=== PATIENT | female | born 2000 | race Caucasian/White ===

== ENCOUNTER 2025-02-04 08:25 | Inpatient (IN) | payer OTHER ==
[~2025-02-04] VITALS: Ht 172.7 cm; Wt 122.5 kg
[2025-02-04 14:04] VITALS: BP 122/88
[2025-02-04 14:25] VITALS: BP 122/88
[2025-02-04] MEDS ORDERED: ACET500 PO (14:50)
[2025-02-04] MEDS ORDERED: Loratadine10 MG PO (14:50)
[2025-02-04] MEDS ORDERED: METO10 PO (14:51)
[2025-02-04] MEDS ORDERED: VENL150ER PO (14:52)
[2025-02-04] MEDS ORDERED: DICLOFENAC SODI50 GM TOP (14:54)
[2025-02-04] MEDS ORDERED: ALBU90OI INH (14:55)
[2025-02-04] MEDS ORDERED: BUDESONIDE-FO10.2 G2 INH (14:58)
[2025-02-04] MEDS ORDERED: ATOR10 PO (15:00)
[2025-02-04] MEDS ORDERED: TRULICITY4.5 MG/0.5 SC (15:04)
[2025-02-04] MEDS ORDERED: LISI5 PO (15:04)
[2025-02-04] MEDS ORDERED: HYDHCL25 (15:06)
[2025-02-04] MEDS ORDERED: TOPI100 PO (15:06)
[2025-02-04] MEDS ORDERED: TRAZ150T57 PO (15:07)
[2025-02-04] MEDS ORDERED: PRAZ1 PO (15:08)
[2025-02-04] MEDS ORDERED: DULERA 100 MCG/13 GM INH (15:20)
[2025-02-04] MEDS ORDERED: ZYRTEC10 M2 PO (15:24)
[2025-02-04] MEDS ORDERED: OLANZapine ODT 10 MG Tab MM PRN (15:45)
[2025-02-04] MEDS ORDERED: Ondansetron 4 MG SoluTab MM PRN (15:45)
[2025-02-04] MEDS ORDERED: Acetaminophen 325 MG TABLET PO PRN (15:50)
[2025-02-04] MEDS ORDERED: LORazepam 2 MG Tab PO PRN (15:50)
[2025-02-04] MEDS ORDERED: TraZODone HCl 50 MG Tab PO PRN (15:50)
[2025-02-04] MEDS ORDERED: LORazepam 2 MG/ML 1ML Injection IM PRN (15:50)
[2025-02-04] MEDS ORDERED: Ibuprofen 600 MG Tab PO PRN (15:50)
[2025-02-04] MEDS ORDERED: Aluminum Hydroxide 320MG/5ML 473 ML PO PRN (15:50)
[2025-02-04] MEDS ORDERED: Calcium Carbonate 500 MG Tab Chew PO PRN (15:50)
[2025-02-04] MEDS ORDERED: HydrOXYzine Pamoate 50 MG Cap PO PRN (15:55)
[2025-02-04] MEDS ORDERED: Polyethylene Glycol 3350 17 gm PO PRN (15:55)
[2025-02-04] MEDS ORDERED: Melatonin 3 MG Tab PO PRN (15:55)
[2025-02-04] MEDS ORDERED: Haloperidol Lactate Inj. 5 MG/ML Injection IM PRN (15:55)
[2025-02-04] MEDS ORDERED: DiphenhydrAMINE HCl 50 MG/ML 1ML Vial IM PRN (15:55)
[2025-02-04] MEDS ORDERED: Haloperidol 5 MG Tab PO PRN (15:55)
[2025-02-04] MEDS ORDERED: DiphenhydrAMINE HCl 50 MG Cap PO PRN (15:55)
[2025-02-04] MEDS ORDERED: Loratadine 10 MG Tab PO PRN (16:20)
[2025-02-04] MEDS ORDERED: Albuterol HFA200 ACT/6.7 GM INH INH PRN (16:20)
[2025-02-04] MEDS ORDERED: Diclofenac Sodium 100 GM TUBE TOP PRN (16:20)
[2025-02-04] MEDS ORDERED: Mometasone/Formoterol MDI 100/5 mcg 13 GM INH SCH (16:25)
[2025-02-04] MEDS ORDERED: Metoclopramide HCl 10 MG Tab PO SCH (17:30)
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
[2025-02-04] MEDS ORDERED: Prazosin HCl 1 MG Cap PO SCH (18:00)
[2025-02-04 20:00] VITALS: BP 134/88
[2025-02-04] MEDS ORDERED: Topiramate 100 MG Tab PO SCH (21:00)
--- NOTE | 2025-02-05 04:06 | NUR ---
SHIFT SUMMARY PT IN BED AT START OF SHIFT, AWAKES TO VERBAL STIMULI. PT WAS TEARFUL AND STATED HE IS UPSET ABOUT HIS CURRENT SITUATION, BUT DENIES ANY CURRENT SI OR THOUGHTS OF SELF HARM. PT PRESENTED TO GROUP AND WATCHED TV. HE HAD HIS EVENING SNACK, WAS COMPLIANT WITH MEDICATIONS, RECEIVED PRN TRAZODONE AND MELATONIN. HE WENT TO BED SHORTLY AFTER SNACK AND HAS APPEARED TO SLEEP THROUGHOUT THE NIGHT WITH RESPIRATIONS CONFIRMED. Q15 MINUTE CHECKS TO CONTINUE.
[2025-02-05 07:12] VITALS: BP 132/87
[2025-02-05 07:14] LABS: CHOL/HDL RATIO 5.4; Cholesterol 156 mg/dL (50-200); HDL Cholesterol 29 mg/dL (>39); LDL/HDL RATIO Unable to Calculate; Low Density Lipoprotein Chol Unable to Calculate mg/dL (0-110); Triglycerides 606 mg/dL (30-140); Very Low Density Lipoprot Chol Unable to Calculate mg/dL (6-28)
[2025-02-05] MEDS ORDERED: Multivitamins 1 Tab PO SCH (09:00)
[2025-02-05] MEDS ORDERED: Venlafaxine HCl 75 MG CapCR PO SCH (09:00)
[2025-02-05] MEDS ORDERED: Atorvastatin 10 MG Tab PO SCH (09:00)
[2025-02-05] MEDS ORDERED: Lisinopril 5 MG Tab PO SCH (09:00)
--- NOTE | 2025-02-05 17:17 | NUR ---
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 HE IS A/O X4 AND ADHERES TO PLAN OF CARE. HE REPORTS CHRONIC SI BUT DOES NOT HAVE A PLAN OR INTENT. HE SAYS THAT HE JUST THINKS ABOUT SUICIDE OFTEN AND THIS IS THE NORM FOR HIM. HE DENIES HI OR ANY HALLUCINATIONS. HE APPEARS TEARFUL AT TIMES AND AFFECT IS SOMEWHAT ANXIOUS. HE ATTENDED ALL GROUPS AND MEALS THIS SHIFT. MONITORED Q15 FOR SAFETY AND WELLNESS.
[2025-02-05 20:00] VITALS: BP 123/77
--- NOTE | 2025-02-06 04:05 | NUR ---
SHIFT SUMMARY PT SLEEPING IN BED AT START OF SHIFT, AWAKES EASILY. A&OX4. SHE STATES HER MOOD IS "BETTER". PT DENIES ANY CURRENT SI OR THOUGHTS OF SELF HARM, BUT DOES STATE SHE DID HAVE THOUGHTS OF SI EARLIER ON DAYSHIFT, WITH NO PLAN. SHE ALSO DENIES ANY HI OR HALLUCINATIONS. PT HAD EVENING SNACK, WAS COMPLIANT WITH MEDS, RECEIVED PRN TRAZODONE AND MELATONIN AND WENT BACK TO BED AFTER SNACK. SHE HAS APPEARED TO SLEEP THROUGHOUT THE NIGHT, WITH RESPIRATIONS CONFIRMED. Q15 MINUTE CHECKS TO CONTINUE PER UNIT PROTOCOL/PT SAFETY.
[2025-02-06 08:05] VITALS: BP 134/90
--- NOTE | 2025-02-06 10:56 | NUR ---
SHIFT ASSESSMENT: PT DENIED SI, HI AND AVH (NO VOICES OR SHADOWS PRESENT RIGHT NOW.) PT ENDORSED ANXIETY 5/10w AND PAIN 4-5/10w, "PAIN IS FROM FIBROMYALGIA." PT HAS BEEN ACTIVE IN GROUPS THIS MORNING AND MOOD WAS DESCRIBED , "I'M HAPPY TODAY." PT IS PLEASANT AND COOPERATIVE WITH CARES AND IS BEING MONITORED EVERY 15 MINUTES FOR SAFETY.
--- NOTE | 2025-02-06 16:36 | NUR ---
SHIFT SUMMARY THIS RN ASSUMED CARE OF PT TODAY AT 1400, SINCE THAT TIME PT HAS BEEN INVOLVED IN THE MILIEU, APPROPRIATE AND COOPERATIVE, NO APPARENT DISTRESS. THEY RECEIVED A PHONE CALL FROM AND STATED THE CALL WENT WELL, PT TOOK A SHOWER IN BETWEEN GROUPS/SNACKS, THEY HAVE RECEIVED Q15 MIN VISUAL SAFETY CHECKS THROUGHOUT THE DAY
[2025-02-06 19:11] VITALS: BP 135/77
--- NOTE | 2025-02-07 04:20 | NUR ---
SHIFT SUMMARY PT LAYING IN BED AWAKE AT START OF MY SHIFT. HE DENIES ANY SI, HI, THOUGHTS OF SELF HARM OR HALLUCINATIONS. PT REPORTED HE IS FEELING BETTER AND "MY MEDS ARE KICKING IN". PT HAD EVENING SNACK, WAS COMPLIANT WITH MEDS, RECEIVED PRN TRAZODONE AND MELATONIN AND WENT TO BED SHORTLY AFTER SNACK. PT HAS APPEARED TO SLEEP MOST OF THE NIGHT, WITH RESPIRATIONS CONFIRMED. Q15 MINUTE CHECKS TO CONTINUE PER UNIT PROTOCOL/PT SAFETY.
[2025-02-07 08:09] VITALS: BP 135/83
--- NOTE | 2025-02-07 11:53 | NUR ---
IMPORTANT HOSPITAL DISCHARGE APPOINTMENT INFORMATION SW contacted [facility] to request a hospital discharge appointment with negative results. A voicemail was left inviting a call back. SW contacted [facility] to request a hospital follow-up appointment for mental health therapy with negative results. [facility] asks the patient contact their office directly to set up an appointment. Patient states he will email his therapist tomorrow when he gets home to obtain an appointment for next week.
--- NOTE | 2025-02-07 14:00 | NUR ---
IMPORTANT DISCHARGE INFORMATION PATIENT TO BE DISCHARGED ON Monday02/08/25 AROUND 1PM. HIS FAMILY IS COMING TO PICK HIM UP. FOLLOW UP APPOINTMENT WITH DR. VALERIO PCP ON 02/12/25 AT 11:20AM. [facility]. PHARMACY: [facility] [phone] PLEASE FAX DISCHARGE SUMMARY TO PCP AT [phone]
--- NOTE | 2025-02-07 17:17 | NUR ---
SHIFT SUMMARY PT HAS HAD A VERY GOOD DAY, UP IN THE [place] ALL DAY, COMPLAINT WITH MEDS, ENGAGED AND PARTICIPATING. DENIES SI/HI/AVH. PLAN FOR HER TO DC HOME TOMORROW. SHE HAS RECEIVED Q15 VISUAL SAFETY CHECKS THROUGHOUT THE SHIFT
[2025-02-07 20:00] VITALS: BP 127/78
--- NOTE | 2025-02-08 04:08 | NUR ---
SHIFT SUMMARY NO ACUTE EVENTS. PT DENIES SI, HI, AVTH. PLEASANT AND COOPERATIVE. PT WENT TO SNACKTIME AND HAS SLEPT/RESTED QUIETLY IN ROOM FOR WHOLE SHIFT. DID NOT GO TO DAYROOM, BUT TALKED W/ ROOMMATE.
[2025-02-08 07:26] VITALS: BP 131/78
--- NOTE | 2025-02-08 10:55 | NUR ---
PATIENT IS BEING DISCHARGED TODAY. SHE IS EXCITED TO BE LEAVING SOON. PATIENT REPORTS SHE HAS NO THOUGHTS OF SUICIDE OR HARM TO HERSELF. SHE GIVES TWO THUMBS UP AND SMILES WHEN ASKED ABOUT HER MOOD. SHE HAS A FOLLOW UP APPT. DR. VALERIO AT [facility] ON 02.12.25 AND HER DISCHARGE SUMMARY INCLUDING A CURRENT MEDICATION LIST HAVE ALREADY BEEN FAXED TO HER OUTSIDE PROVIDER. PATIENT PLANS TO LISTEN TO MUSIC, DO SOME ART, AND TAKE TIME TO CARE FOR HER OWN WELL BEING IN ORDER TO STAY MENTALLY HEALTHY ONCE SHE IS AT HOME. PATIENT WAS PROVIDED VERBAL AND PRINTED EDUCATION ON STRESS AND SUICIDAL THOUGHTS/FEELINGS. SHE WAS GIVEN THE OPPORTUNITY TO ASK QUESTIONS AND IS READY FOR DISCHARGE ONCE HER FAMILY ARRIVES.
== END 2025-02-08 12:44 | disposition home or self-care (01) | DRG 882 ==
LOC: BHU 08:25
PROVIDERS: ADMIT Psychiatry & Neurology Psychiatry
DX: F43.25 Adjustment disorder with mixed disturbance of emotions and conduct (principal); F33.2 Major depressive disorder, recurrent severe without psychotic features; R45.851 Suicidal ideations; E11.9 Type 2 diabetes mellitus without complications; E78.5 Hyperlipidemia, unspecified; F41.9 Anxiety disorder, unspecified; Z79.899 Other long term (current) drug therapy; Z79.84 Long term (current) use of oral hypoglycemic drugs
CPT/HCPCS: 36415; 80061; 83036; A9270